=== PATIENT | male | born 1960 | race Caucasian/White ===

== ENCOUNTER → 2018-09-10 | Outpatient (CLI) | payer MEDICAID | LOC: FCPNEURO 20:00 | PROVIDERS: ATTEND Student in an Organized Health Care Education/Training Program | DX: G47.33 Obstructive sleep apnea (adult) (pediatric) (principal) ==

== ENCOUNTER 2018-10-05 08:38 | Emergency (ER) | payer MEDICAID ==
[2018-10-05] MEDS ORDERED: NS 1,000 ML IV ONE ×2 (09:02)
[2018-10-05] MEDS ORDERED: PROMETHAZINE HCL 25 MG/ML INJ IVP ONE (09:02)
--- NOTE | 2018-10-05 09:02 | EDPHY ---
H & P Stated Complaint: diarrhea/abd cramps/blood in stool/ hx ibs Time Seen by Provider: 10/05/18 08:59 HPI/ROS: HPI: This is a 57-year-old male who presents with Chief Complaint: diarrhea/abd cramps/blood in stool/ hx ibs Location: GI Quality: Diarrhea, abdominal cramps Duration: 3-4 days Signs and Symptoms: no fever, no nausea, no vomiting, no hematemesis, + blood in stool, no abdominal bloating, + diarrhea, no back pain, no urinary symptoms, no testicular/groin pain, no indigestion, no chest pain, no shortness of breath Timing: Acute, intermittent episodes Severity: Moderate Context: Patient has a history of IBS, presents with 8 days ago having flu- like symptoms that lasted approximately 3-4 days and then for the last 3-4 days having diarrhea approximately 5-10 times a day with blood noted in the toilet accompanied by generalized abdominal cramps. Patient reports he does not take any blood thinners. His last colonoscopy was approximately 5 years ago. Patient reports that he has been taking Bentyl 3 times a day with transient relief of his abdominal cramping. He has been taking Imodium ADD approximately every 4-6 hours with no relief in his diarrhea. No recent antibiotic use. Denies any fever, foreign travel. Modifying Factors: See above Comment: ROS: A comprehensive 10 system review of systems is otherwise negative aside from elements mentioned in the history of present illness. MEDICAL/SURGICAL/SOCIAL HISTORY: Medical history: Arthritis, irritable bowel syndrome, obstructive sleep apnea, low back pain Surgical history: Denies Social history: Retired truck crane operator. Disabled. Family history noncontributory. CONSTITUTIONAL: Nontoxic-appearing elderly white male with a white rincon, awake and alert, no obvious distress HEENT: Atraumatic and normocephalic, PERRL, EOMI. Nares patent; no rhinorrhea; no nasal mucosal edema. Tympanic membranes clear. Oropharynx clear, no exudate and dry oral mucosa. Airway patent. No lymphadenopathy. No meningismus. Cardiovascular: Normal S1/S2, regular rate, regular rhythm, without murmur rub or gallop. PULMONARY/CHEST: Symmetrical and nontender. Clear to auscultation bilaterally. Good air movement. No accessory muscle usage. ABDOMEN: Soft, protuberant, nondistended, mild generalized tenderness, no rebound, no guarding, no peritoneal signs, no masses or organomegaly. No CVAT. Hyperactive bowel sounds heard x4 quadrants. EXTREMITIES: 2/2 pulses, strength 5/5, no deformities, no clubbing, no cyanosis or edema. NEUROLOGICAL: no focal neuro deficits. GCS 15. SKIN: Warm and dry, no erythema. no rash. Good capillary refill. Source: Patient Exam Limitations: No limitations - Personal History Current Tetanus Diphtheria and Acellular Pertussis (TDAP): Yes - Medical/Surgical History Hx Asthma: No Hx Chronic Respiratory Disease: No Hx Diabetes: No Hx Cardiac Disease: No Hx Renal Disease: No Hx Cirrhosis: No Hx Alcoholism: No Hx HIV/AIDS: No Hx Splenectomy or Spleen Trauma: No Other PMH: arthritis/IBS - Social History Smoking Status: Current every day smoker Constitutional: Initial Vital Signs Temperature (C) 36.3 C 10/05/18 08:44 Heart Rate 71 10/05/18 08:44 Respiratory Rate 18 10/05/18 08:44 Blood Pressure 121/84 H 10/05/18 08:44 O2 Sat (%) 94 10/05/18 08:44 O2 Delivery Mode Room Air Allergies/Adverse Reactions: tetracycline Allergy (Verified 10/05/18 08:42) Home Medications: Medication Instructions Recorded Atorvastatin Calcium 10/05/18 Bupropion HCl 10/05/18 Cymbalta 10/05/18 Dicyclomine 10/05/18 Dicyclomine [Bentyl 10 MG (*)] 10 mg PO QID PRN #10 cap 10/05/18 Diphenoxylate HCl/Atrop Sulf 1 tab PO Q12 PRN #4 tab 10/05/18 [Lomotil Tab (*)] Flexeril 10 MG (*) 10/05/18 Meloxicam 10/05/18 Ondansetron Odt [Zofran Odt 4 mg 4 mg PO Q4 PRN #12 tab 10/05/18 (*)] Medical Decision Making - Diagnostics Imaging Results: Imaging Impressions Abdomen CT 10/05/18 09:03 Impression: Nothing acute on this scan. Findings and recommendations discussed with Ruthie Silva at 1030 hour, 2018. Final report concurs with initial preliminary interpretation. ED Course/Re-evaluation: Vital signs reviewed and stable upon arrival. No systemic signs. IV access, laboratory studies, CT abdomen and pelvis scan ordered Patient given 2 L normal saline, IV promethazine 12.5 mg Stool studies and fecal occult blood ordered 0948: Labs reviewed. No signs of leukocytosis/anemia/platelet dysfunction/DHRUV/ elevated LFTs/electrolyte imbalance/pancreatitis. 1050: Called by radiologist, Dr. fernández, who advised that CT abdomen and pelvis scan shows no signs of appendicitis, no diverticulitis, a few tics, no colitis, no obstruction. Reassessed patient who reports relief of symptoms. Abdomen is soft and nontender. Drinking fluids without difficulty. Requesting refill Bentyl and prescription for Zofran and Lomotil. Referral to Gastroenterology given. After 3 hr in the emergency room unable to give stool studies and patient adamantly declined obtaining occult stool sample This patient was seen under the supervision of my secondary supervising physician. I evaluated care for this patient independently. Discussed this patient with Dr. Richmond who did not see the patient. Differential Diagnosis: Abdominal pain including but not limited to appendicitis, cholecystitis, gastritis and urinary tract infection. - Data Points Laboratory Results: Laboratory Results 10/05/18 09:10 10/05/18 09:10 10/05/18 10/05/18 09:10 09:10 WBC 8.87 10^3/uL 10^3/uL (3.80-9.50) RBC 5.29 10^6/uL 10^6/uL (4.40-6.38) Hgb 16.1 g/dL g/dL (13.7-17.5) Hct 46.7 % % (40.0-51.0) MCV 88.3 fL fL (81.5-99.8) MCH 30.4 pg pg (27.9-34.1) MCHC 34.5 g/dL g/dL (32.4-36.7) RDW 13.2 % % (11.5-15.2) Plt Count 232 10^3/uL 10^3/uL (150-400) MPV 8.6 fL L fL (8.7-11.7) Neut % (Auto) 63.3 % % (39.3-74.2) Lymph % (Auto) 24.6 % % (15.0-45.0) Graves % (Auto) 7.4 % % (4.5-13.0) Eos % (Auto) 4.1 % % (0.6-7.6) Baso % (Auto) 0.3 % % (0.3-1.7) Nucleat RBC Rel Count 0.0 % % (0.0-0.2) Absolute Neuts (auto) 5.61 10^3/uL 10^3/uL (1.70-6.50) Absolute Lymphs (auto) 2.18 10^3/uL 10^3/uL (1.00-3.00) Absolute Monos (auto) 0.66 10^3/uL 10^3/uL (0.30-0.80) Absolute Eos (auto) 0.36 10^3/uL 10^3/uL (0.03-0.40) Absolute Basos (auto) 0.03 10^3/uL 10^3/uL (0.02-0.10) Absolute Nucleated RBC 0.00 10^3/uL 10^3/uL (0-0.01) Immature Gran % 0.3 % % (0.0-1.1) Immature Gran # 0.03 10^3/uL 10^3/uL (0.00-0.10) Sodium 137 mEq/L mEq/L (135-145) Potassium 4.3 mEq/L mEq/L (3.5-5.2) Chloride 107 mEq/L mEq/L (97-110) Carbon Dioxide 23 mEq/l mEq/l (22-31) Anion Gap 7 mEq/L mEq/L (6-14) BUN 13 mg/dL mg/dL (7-23) Creatinine 0.9 mg/dL mg/dL (0.7-1.3) Estimated GFR > 60 Glucose 91 mg/dL mg/dL (70-100) Calcium 8.1 mg/dL L mg/dL (8.5-10.4) Total Bilirubin 0.3 mg/dL mg/dL (0.1-1.4) Conjugated Bilirubin 0.3 mg/dL mg/dL (0.0-0.5) Unconjugated Bilirubin 0.0 mg/dL mg/dL (0.0-1.1) AST 38 IU/L IU/L (17-59) ALT 52 IU/L IU/L (21-72) Alkaline Phosphatase 73 IU/L IU/L (38-126) Total Protein 6.2 g/dL L g/dL (6.3-8.2) Albumin 3.6 g/dL g/dL (3.5-5.0) Lipase 39 IU/L IU/L (23-300) Medications Given: Discontinued Medications Sodium Chloride (Ns) 1,000 mls @ 0 mls/hr IV EDNOW ONE; Wide Open PRN Reason: Protocol Stop: 10/05/18 09:03 Last Admin: 10/05/18 09:12 Dose: 1,000 mls Sodium Chloride (Ns) 1,000 mls @ 0 mls/hr IV EDNOW ONE; Wide Open PRN Reason: Protocol Stop: 10/05/18 09:03 Last Admin: 10/05/18 09:12 Dose: 1,000 mls Promethazine HCl (Phenergan) 12.5 mg IVP EDNOW ONE Stop: 10/05/18 09:03 Last Admin: 10/05/18 09:13 Dose: 12.5 mg Departure - Departure Disposition: Home, Routine, Self-Care Clinical Impression: Viral gastroenteritis Condition: Good Instructions: Gastroenteritis (ED) Additional Instructions: Consume a minimum of 8-10 glasses of water or electrolyte fluid replacement drinks that include Gatorade, Powerade, Pedialyte. Eat a bland diet for the next 48 hours and then slowly advance as tolerated. Take Zofran 1 tab every 4 hours as needed for nausea, vomiting. Take Bentyl 3 to 4 times a day as needed for GI distress. Take Lomotil every 12 hr as needed for diarrhea. Return to the Emergency Room if symptoms do not resolve in the next 48-72 hours , you spike a fever > 102 F, or experience intractable abdominal pain/nausea/ vomiting. Establish care with Gastroenterology in the next 1-2 weeks. Referrals: Lidia Grier PAC [Primary Care Provider] - As per Instructions Cuate Renee MD [Medical Doctor] - As per Instructions Prescriptions: Dicyclomine [Bentyl 10 MG (*)] 10 mg PO QID PRN #10 cap PRN Reason: Gi Distress Diphenoxylate HCl/Atrop Sulf [Lomotil Tab (*)] 1 tab PO Q12 PRN #4 tab PRN Reason: Diarrhea/Loose Stools Ondansetron Odt [Zofran Odt 4 mg (*)] 4 mg PO Q4 PRN #12 tab PRN Reason: Nausea/Vomiting, Use 1st
[2018-10-05 09:20] LABS: PLATELET COUNT 232 10^3/uL (150-400)
[2018-10-05] MEDS ORDERED: IOPAMIDOL (ISOVUE 370) 100 ML BTL IV ONE (09:54)
[2018-10-05 11:25] VITALS: BP 127/90
== END 2018-10-05 11:23 | disposition home or self-care (01) ==
DX: A08.4 Viral intestinal infection, unspecified (principal); E86.9 Volume depletion, unspecified
CPT/HCPCS: 96374; J2550; Q9967

== ENCOUNTER 2018-11-27 08:25 | Emergency (ER) | payer MEDICAID | END 2018-11-27 09:12 | disposition home or self-care (01) ==

== ENCOUNTER 2018-12-06 12:55 | Day surgery (SDC) | payer MEDICAID ==
[2018-12-06] MEDS ORDERED: TRIAMCINOLONE ACETONIDE 200 MG/5 ML MDV IM ONE (13:04)
== END 2018-12-06 14:25 | disposition home or self-care (01) ==
LOC: FIMAGING 12:55
PROVIDERS: ATTEND Nurse Practitioner Family
DX: M54.16 Radiculopathy, lumbar region (principal); M51.26 Other intervertebral disc displacement, lumbar region; F17.210 Nicotine dependence, cigarettes, uncomplicated
CPT/HCPCS: J3301

== ENCOUNTER 2018-12-21 16:40 | Emergency (ER) | payer MEDICAID ==
[2018-12-21] MEDS ORDERED: LET GEL TOPICAL 1 EA SYR TP ONE (17:09)
[2018-12-21] MEDS ORDERED: ACETAMINOPHEN 500 MG TAB PO ONE (17:09)
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
[2018-12-21 19:16] VITALS: BP 118/69
== END 2018-12-21 19:15 | disposition home or self-care (01) ==
DX: S62.347A Nondisplaced fracture of base of fifth metacarpal bone, left hand, initial encounter for closed fracture (principal); S01.81XA Laceration without foreign body of other part of head, initial encounter; V18.0XXA Pedal cycle driver injured in noncollision transport accident in nontraffic accident, initial encounter; Y93.55 Activity, bike riding; Y92.480 Sidewalk as the place of occurrence of the external cause

== ENCOUNTER 2018-12-29 13:02 | Emergency (ER) | payer MEDICAID ==
--- NOTE | 2018-12-29 14:04 | EDPHY ---
H & P Time Seen by Provider: 12/29/18 13:53 HPI/ROS: CHIEF COMPLAINT: Back pain HISTORY OF PRESENT ILLNESS: Patient is a 58-year-old male who presents to the emergency department with back pain. Patient states "my back went out" this morning. No trauma or fall. The patient has chronic back pain with L4/L5 disc disease. He has had previous injections which lasted for short period of time. He currently sees Dr. Lidia Montaño and had an appointment yesterday. He takes Flexeril and meloxicam for his chronic back pain. Patient states he has chronic incontinence of urine. No incontinence of stool. No fevers or chills. No weakness. He has slight numbness on his left heel. This is typical when he has flares. REVIEW OF SYSTEMS: 10 systems were reveiwed and are negative with the exception of the elements mentioned in the history of present illness. Past Medical/Surgical History: Includes the arthritis, L4-L5 disc disease, depression, IBS Smoking Status: Current every day smoker Physical Exam: Vitals noted GENERAL: Well-appearing, in no acute distress, alert. HEENT: Eyes normal to inspection, normal pharynx, no signs of dehydration. NECK: Normal, supple. RESPIRATORY: Clear to auscultation bilaterally, no rales, rhonchi or wheezing. CVS: Regular rate and rhythm, no rubs, murmurs, or gallops. ABDOMEN: Soft, nontender, nondistended, no organomegaly. BACK: Normal to inspection, no CVA tenderness. No significant spinal tenderness to palpation. No deformity. SKIN: Normal color, no rash, warm, dry. No pallor. EXTREMITIES: No pedal edema, no calf tenderness, no Homans sign or cords, no joint swelling. Splint on left hand. NEURO/PSYCH: Alert and oriented, normal mood and affect, normal motor sensory exam. Constitutional: Initial Vital Signs Temperature (C) 37.1 C 12/29/18 13:12 Heart Rate 97 12/29/18 13:12 Respiratory Rate 16 12/29/18 13:12 O2 Sat (%) 94 12/29/18 13:12 O2 Delivery Mode Room Air Allergies/Adverse Reactions: tetracycline Allergy (Verified 12/29/18 13:12) Home Medications: Medication Instructions Recorded Atorvastatin Calcium 10/05/18 Bupropion HCl 10/05/18 Cymbalta 10/05/18 Dicyclomine [Bentyl 10 MG (*)] 10 mg PO QID PRN #10 cap 10/05/18 Flexeril 10 MG (*) 10/05/18 Meloxicam 10/05/18 Abx For Staph Infx 12/21/18 oxyCODONE/APAP 5/325 [Percocet 1 - 2 tab PO Q4PRN PRN #7 tab 12/29/18 5/325 (*)] predniSONE 20 mg PO DAILY 4 Days tab 12/29/18 Medical Decision Making ED Course/Re-evaluation: The in the emergency department I discussed possible etiologies with the patient. Answered all his questions. This time I do not feel he needs imaging. Patient will be started on a course of steroid. He will continue to take his meloxicam and Flexeril. He was given 7 tablets of Percocet for breakthrough pain. The patient was given follow-up with clinical pharmacy specialist. Patient will also follow up with his primary care physician. Differential Diagnosis: My differential includes but is not limited to disc disease, disc herniation, musculoskeletal strain, epidural hematoma, epidural mass, epidural abscess, cauda equina syndrome, diskitis Departure - Departure Disposition: Home, Routine, Self-Care Clinical Impression: Low back pain Qualifiers: Chronicity: acute Back pain laterality: bilateral Sciatica presence: unspecified whether sciatica present Qualified Code(s): M54.5 - Low back pain Condition: Fair Instructions: Acute Low Back Pain (ED) Additional Instructions: Return with increasing pain, fever, weakness, numbness or any other concerns Referrals: Lidia Grier PAC [Primary Care Provider] - 3-4 days, if not improved Miles Izaguirre MD [Medical Doctor] - 5-7 days, call for appt. Prescriptions: oxyCODONE/APAP 5/325 [Percocet 5/325 (*)] 1 - 2 tab PO Q4PRN PRN #7 tab PRN Reason: For Moderate To Severe Pain predniSONE 20 mg PO DAILY 4 Days tab
[2018-12-29] MEDS ORDERED: predniSONE 20 MG TAB PO ONE (14:08)
[2018-12-29 14:29] VITALS: BP 145/95
== END 2018-12-29 14:32 | disposition home or self-care (01) ==
DX: M54.5 Low back pain (principal)
CPT/HCPCS: J7512

== ENCOUNTER 2019-01-06 20:05 | Emergency (ER) | payer MEDICAID ==
[2019-01-06 20:12] VITALS: BP 118/76
--- NOTE | 2019-01-06 20:28 | EDPHY ---
H & P Stated Complaint: +etoh, L spine pain Time Seen by Provider: 01/06/19 20:21 HPI/ROS: CHIEF COMPLAINT: Intoxication, homelessness, chronic back pain, vomiting HISTORY OF PRESENT ILLNESS: Patient is a 58-year-old homeless intoxicated man with a history of chronic back pain. He has received steroid injections as recently as 2 weeks ago with minimal improvement. [facility] was [facility] the jail this evening when he threw up. The jail called 911. He told 911 that he threw up because of his chronic back pain. He tells me that his pain is unchanged from baseline. No new trauma. No fever. No swelling. No radiation of his pain. No weakness or numbness. No bowel or bladder abnormalities. He states that he does not wish to be treated for his back pain and does not wish to be here but the jail called because he vomited. He tells me that he does not wish to be evaluated and does not want to see the doctor. He is walking around the room in rather threatening manner. Severity: Severe Modifying factors: None REVIEW OF SYSTEMS: Constitutional: denies: chills, fever, recent illness, recent injury EENTM: denies: blurred vision, double vision, nose congestion Respiratory: denies: cough, shortness of breath Cardiac: denies: chest pain, irregular heart rate, lightheadedness, palpitations Gastrointestinal/Abdominal: denies: abdominal pain, diarrhea, nausea, vomiting, blood streaked stools Genitourinary: denies: dysuria, frequency, hematuria, pain Musculoskeletal: See HPI Skin: denies: lesions, rash, jaundice, bruising Neurological: See HPI denies: headache, numbness, paresthesia, tingling, dizziness, weakness Hematologic/Lymphatic: denies: blood clots, easy bleeding, easy bruising Immunologic/allergic: denies: HIV/AIDS, transplant 10 systems reviewed and negative except as noted Limited EXAM: GENERAL: Disheveled, moderate distress HEAD: Atraumatic, normocephalic. EYES: Pupils equal round and reactive to light, extraocular movements intact. ENT: Moist mucous membranes. NECK: Normal range of motion, supple without lymphadenopathy or JVD. LUNGS: Not hypoxic HEART: Regular rate and rhythm ABDOMEN: Soft, nontender, BACK: No obvious swelling or deformity EXTREMITIES: Normal range of motion, no pitting or edema. No clubbing or cyanosis. NEUROLOGICAL: Cranial nerves II through XII grossly intact. Normal speech, normal but painful gait. 5/5 strength, normal movement in all extremities PSYCH: Somewhat angry SKIN: No visible rashes or lesions. Source: Patient, EMS Exam Limitations: Intoxication - Personal History Tetanus Vaccine Date: 2010 - Medical/Surgical History Hx Asthma: No Hx Chronic Respiratory Disease: No Hx Diabetes: No Hx Cardiac Disease: No Hx Renal Disease: No Hx Cirrhosis: No Hx Alcoholism: No Hx HIV/AIDS: No Hx Splenectomy or Spleen Trauma: No Other PMH: hyperlipidemia, arthritis/IBS, bulging discs L4/L5, depression - Social History Smoking Status: Current every day smoker Constitutional: Initial Vital Signs Temperature (C) 36.4 C 01/06/19 20:08 Heart Rate 67 01/06/19 20:08 Respiratory Rate 18 01/06/19 20:08 Blood Pressure 118/76 01/06/19 20:08 O2 Sat (%) 97 01/06/19 20:08 O2 Delivery Mode Room Air Allergies/Adverse Reactions: tetracycline Allergy (Verified 01/06/19 20:12) Home Medications: Medication Instructions Recorded Atorvastatin Calcium 10/05/18 Bupropion HCl 10/05/18 Cymbalta 10/05/18 Dicyclomine [Bentyl 10 MG (*)] 10 mg PO QID PRN #10 cap 10/05/18 Flexeril 10 MG (*) 10/05/18 Meloxicam 10/05/18 Abx For Staph Infx 12/21/18 oxyCODONE/APAP 5/325 [Percocet 1 - 2 tab PO Q4PRN PRN #7 tab 12/29/18 5/325 (*)] predniSONE 20 mg PO DAILY 4 Days tab 12/29/18 Medical Decision Making ED Course/Re-evaluation: The patient refuses examination. He does not wish to be seen by me. He is getting has staff and walking out of the department. Attempted to help him get back to the jail but he declined. Differential Diagnosis: Partial list of the Differential diagnosis considered include but were not limited to; intoxication, chronic back pain, radiculopathy and although unlikely based on the history and physical exam, I also considered fall, infection, withdrawal, spinal cord compression. Departure - Departure Disposition: Home, Routine, Self-Care Clinical Impression: Acute vomiting Chronic low back pain Qualifiers: Back pain laterality: unspecified Sciatica presence: without sciatica Qualified Code(s): M54.5 - Low back pain; G89.29 - Other chronic pain; G89.29 - Other chronic pain Alcohol intoxication Qualifiers: Complication of substance-induced condition: uncomplicated Qualified Code(s): F10.920 - Alcohol use, unspecified with intoxication, uncomplicated Condition: Fair Instructions: Alcohol Intoxication (ED), Acute Nausea and Vomiting (ED) Referrals: Lidia Grier, PAC [Primary Care Provider] - As per Instructions
== END 2019-01-06 20:36 | disposition home or self-care (01) ==
LOC: EDUNIT#
DX: F10.920 Alcohol use, unspecified with intoxication, uncomplicated (principal); R11.10 Vomiting, unspecified; M54.9 Dorsalgia, unspecified; G89.29 Other chronic pain; F17.200 Nicotine dependence, unspecified, uncomplicated; Z59.0 Homelessness